=== PATIENT | female | born 2000 | race Caucasian/White ===

== ENCOUNTER 2018-01-17 12:36 | Observation (INO) ==
[~2018-01-17 12:36] MED LIST: LACTATED RINGER'S 1,000 ML IV SCH
[2018-01-17] MEDS ORDERED: SODIUM CHLORIDE 0.9% 1000ML 2,000 ML IV SCH (13:00)
[2018-01-17] MEDS ORDERED: ONDANSETRON INJ 2 MG/ML 2 ML VIAL IV STA (13:00)
[2018-01-17] MEDS ORDERED: ACETAMINOPHEN 1,000 MG/100 ML VIAL IV ONE (13:00)
[2018-01-17] MEDS ORDERED: MoRPHine SULFATE 4 MG/ML 1 ML CARP\\VIAL IV STA (13:00)
[2018-01-17 13:30] LABS: Appearance Urine Cloudy (Clear); Bacteria Urine Automated 1+ (Negative); Bilirubin Urine Negative (Negative); Color Urine Dark Yellow; Epithelial Cell Urine Auto >30 /lpf (0-5); Glucose Urine UA Negative (Negative); Leukocyte Esterase Urine Negative (Negative); Nitrite Urine Negative (Negative); Protein Urine 1+ (Negative); Specific Gravity Urine 1.036 (1.000-1.030); Urobilinogen Urine Negative (Negative); pH Urine 5.5 (4.5-7.5)
[2018-01-17 13:31] LABS: Basophils # (auto) 0.04 K/uL (0-0.2); Basophils % (auto) 0.4 %; Eosinophils # (auto) 0.03 K/uL (0-0.5); Eosinophils % (auto) 0.3 %; Hematocrit (blood only) 33.5 % (37-47); Hemoglobin 12.1 g/dL (12.0-16.0); Immature Granulocytes # (auto) 0.05 K/uL (0.00-0.02); Immature Granulocytes % (auto) 0.5 %; Lymphocytes # (auto) 2.75 K/uL (1.2-3.4); Lymphocytes % (auto) 26.8 %; Mean Corpuscular Hgb Conc 36.1 g/dL (32-36); Mean Platelet Volume 9.2 fL (7.4-10.4); Monocytes # (auto) 1.18 K/uL (0.11-0.59); Monocytes % (auto) 11.5 %; Neutrophils # (auto) 6.22 K/uL (1.4-6.5); Neutrophils % (auto) 60.5 %; Platelet Count 199 K/uL (130-400); RDW Coefficient of Variation 12.4 % (11.5-14.5); RDW Standard Deviation 42.2 fL (36.4-46.3); Red Blood Count 3.64 M/uL (4.2-5.4); White Blood Count 10.27 K/uL (4.8-10.8)
[2018-01-17 13:35] LABS: Ketones Urine 4+ (Negative)
--- NOTE | 2018-01-17 13:38 | XRay Report ---
XR chest 1V portable CLINICAL HISTORY: diffuse abd pain after intercourse, r/o free air pain COMPARISON STUDY: No previous studies for comparison. FINDINGS: The bones soft tissues and hemidiaphragms are normal. The cardiomediastinal silhouette is n ormal. The lungs are clear. The pulmonary vasculature is normal. IMPRESSION: Negative chest. The above report was generated using voice recognition software. It may contain grammatical, syntax or spelling errors. Electronically signed by: Von Black M.D. 01/17/2018 1:37 PM
[2018-01-17 13:50] LABS: Cast Urine Automated 0 /lpf (0-5)
[2018-01-17 13:51] LABS: BUN Creatinine Ratio 14.8 (10-20); Bilirubin Direct 0.3 mg/dl (0-0.2); Calcium 9.1 mg/dl (8.5-10.1); Creatinine Clr Calc Pharmacy 92.9 ml/min; Est GFR (African American) 129.7; Est GFR (Non-African American) 111.9; Potassium 3.6 mmol/L (3.5-5.1)
[2018-01-17 13:54] LABS: Albumin Globulin Ratio 1.1 (0.9-2); Bilirubin,Total 0.8 mg/dl (0.1-1); Globulin 3.5 gm/dl (2.5-4.0); Total Protein 7.5 gm/dl (6.4-8.2)
[2018-01-17 13:56] LABS: Pregnancy Test, Serum Negative (Negative)
[2018-01-17] MEDS ORDERED: IOVERSOL 100ml IV PRN (14:03)
--- NOTE | 2018-01-17 14:21 | CT Scan Report ---
CT SCAN OF THE ABDOMEN AND PELVIS WITH IV CONTRAST CLINICAL HISTORY: Post coital abdominal pain. COMPARISON STUDY: No priors. TECHNIQUE: Following the IV administration of 93 cc of Optiray 320, CT scan of the abdomen and pelvi s is performed from the lung bases to the proximal femora. Images are reviewed in the axial, sagittal , and coronal planes. IV contrast was administered without complication. A dose lowering technique wa s utilized adhering to the principles of ALARA. CT DOSE: 266.13 mGy.cm FINDINGS: Lung bases: The heart is normal in size and without pericardial effusion. The lung bases are clear. Liver: The contrast-enhanced liver is normal in size, contour, and attenuation. There is no intrahepa tic biliary ductal dilatation. The hepatic veins and portal veins are patent. Gallbladder: Unremarkable. Spleen: Normal in size and attenuation. Pancreas: Unremarkable. Adrenal glands: Unremarkable. Kidneys: The contrast enhanced kidneys are normal in size and without hydronephrosis. The kidneys enh ance symmetrically. Abdominal vasculature: The abdominal aorta is normal in course and caliber. Bowel: The small bowel and colon are normal in course and caliber. The appendix is partially visuali zed and grossly unremarkable. Peritoneum: There is no intraperitoneal free air. There is a moderate to large volume of complex free fluid in the abdomen and pelvis consistent with hemoperitoneum. Hyperdense blood/clots are present i n the pelvis. No active extravasation is seen. Lymphadenopathy: None. Pelvic viscera: The uterus is normal as visualized noting an intrauterine device in place. Involuting follicles are suggested in the left ovary. The bladder is decompressed and grossly normal. Skeletal structures: No lytic or blastic lesions are seen. IMPRESSION: 1. There is a moderate to large volume of hemoperitoneum, with hyperdense blood products identified i n the pelvis. A pelvic etiology is favored, and top differential considerations include a ruptured ec topic or a ruptured hemorrhagic ovarian cyst. Gynecological assessment is recommended. 2. No active extravasation is identified. 3. An intrauterine device is in place. 4. An involuting cyst/follicle is suggested in the left ovary. 5. No intraperitoneal free air is seen. 6. Additional findings as above. Findings were discussed with Dr. Strong in the emergency department at the time of interpretation. Electronically signed by: Deion Rendon M.D. 01/17/2018 2:20 PM
[2018-01-17] MEDS ORDERED: ONDANSETRON INJ 2 MG/ML 2 ML VIAL IV PRN (15:48)
--- NOTE | 2018-01-17 16:18 | Consultation Report ---
DATE OF CONSULTATION: 01/17/2018 HISTORY AND PHYSICAL/COMMUNITY ORGANIZATION WORKER CONSULT Consult from the ER was placed by Dr. Strong. CHIEF COMPLAINT: Abdominal pain. HISTORY OF PRESENT ILLNESS: The patient is a 17-year-old G0 who was in her usual state of health. She had intercourse last night and then around 10:00 p.m. after the intercourse experienced abdominal pain. Pain was intense and was associated with some difficulty breathing as well as worsening with movement. The patient presented to the Emergency Room this morning with the abdominal pain. She reports abdominal pain is now 5/10 compared to 11/27. She was seen by the ER doctor. Vitals are stable. She has no vaginal bleeding. The abdominal pain evaluation in the ER included a chest x-ray and a CT scan. The chest x-ray is unremarkable. The CT scan showed moderate to large amount of hemoperitoneum within the abdomen and pelvis. COMMUNITY ORGANIZATION WORKER consult was therefore placed. Patient is seen by me. She is alert, awake and not in severe discomfort. Vitals are stable. PAST MEDICAL HISTORY: None. PAST SURGICAL HISTORY: None. SOCIAL HISTORY: The patient denied tobacco, drug or alcohol use. GYNECOLOGIC HISTORY: The patient has IUD and is sexually active. PHYSICAL EXAMINATION: GENERAL: Well-developed, well-nourished white female in no acute distress. HEART: S1, S2, regular rhythm and rate. LUNGS: Clear to auscultation bilaterally. ABDOMEN: The patient has some generalized tenderness. There is, however, bowel sounds. EXTREMITIES: No cyanosis, clubbing, edema. ASSESSMENT AND PLAN: A 17-year-old G0 with what appears to be ruptured hemorrhagic cyst. Vitals are stable. H&H is stable. I have discussed hemorrhagic cyst rupture with patient. We discussed expected management versus surgery. The patient is a college student and is not sure what she wants to do right now. Decision therefore is to admit patient for observation and continue to monitor H&H and if she gets worse during the night, in the morning we will consider surgery. CARRIE
[2018-01-17 16:40] LABS: Hematocrit (blood only) 27.5 % (37-47); Hemoglobin 9.8 g/dL (12.0-16.0)
[2018-01-17] MEDS: LACTATED RINGER'S 1,000 ML IV SCH (17:52)
[2018-01-17] MEDS: OXYCODONE/ACETAMINOPHEN 5mg/325mg TAB PO PRN (18:52)
--- NOTE | 2018-01-17 20:05 | Emergency Department Note ---
Entered by Ana Finn acting as a scribe for Reyes Strong MD History of Present Illness General Chief complaint: Pelvic Pain Stated complaint: CRAMPING IN PELVIS,BACK AND PELVIC PAIN Time Seen by Provider: 01/17/18 12:47 Source: patient History of Present Illness Onset (ago): day(s) 1 Location: abdomen Pain Consistency: + constant Maximum Pain Intensity: 6 Quality: + other ("cramping") Exacerbated By: + other (deeps breaths) Associated symptoms: + diaphoresis, + nausea/vomiting (The patient complains of nausea but denies vomiting. ) and + other (The patient complains of upper back pain and abdominal pain with urination. She denies any pain during intercourse , abnormal or bloody discharge and itching vaginally. ); no fever/chills The patient is a 17 year old female who presents to the Emergency Room with complaints of constant "cramping" upper abdominal pain that began yesterday after intercourse. She states that the pain "feels like it's moving." The patient complains of upper back pain, abdominal pain with urination, diaphoresis , and nausea. She denies any pain during intercourse, abnormal or bloody discharge, itching vaginally, fever, and vomiting. She says that the pain worsens with deep breaths. The patient states that she has had her current IUD in for a year, and notes that she gets normal menstrual cycles. She says that her LKNP was 2 weeks ago. The patient denies any history of abdominal issues. Home Medications Home Medications Medication Instructions Recorded Confirmed Type fexofenadine [Kerrie Allergy] 180 mg PO BID 01/17/18 01/17/18 History multivitamin 1 tab PO QAM 01/17/18 01/17/18 History Allergies Allergy/AdvReac Type Severity Reaction Status Date / Time SEASONAL Allergy Watery Eye Uncoded 01/17/18 14:06 Past Med/Surg History Medical History No significant past medical history No significant past surgical history Family History Other No pertinent family history Social History Current Living Situation Comment: Pt [employer] student living on campus current occupational status: student Other Information That Helps Us Care for You: No Feels Safe at Home: Yes Smoking Status: Never smoker Do You Dip or Chew Tobacco: No Second Hand Exposure: No Tobacco Cessation Education Requested by Patient: No Hx Alcohol Use: No Hx Substance Use: No Beliefs That Will Affect Care: None Preferred Language: Amharic Communication Ability: Effective Review of Systems See HPI for pertinent positives & negatives. and A total of 10 systems reviewed and were otherwise negative Physical Exam Vital Signs Vital Signs - 24 hr 01/17/18 12:41 01/17/18 13:22 01/17/18 14:53 Temperature 36.9 C Temperature Source Oral Sepsis Recent Fever Within 48 Hours No Sepsis New/Unexplained Change in Mental Status No Sepsis Action Taken by Nursing No Action Required Pulse Rate 125 H Pulse Rate [Apical] 85 89 Pulse Rhythm [Apical] Pulse Strength [Apical] Respiratory Rate 20 17 16 Respiratory Effort / Characteristics Respiratory Depth Normal Respiratory Pattern Blood Pressure 120/82 Blood Pressure [Right Arm] 105/63 107/69 Blood Pressure Mean 94 Blood Pressure Mean [Right Arm] 77 81 Blood Pressure Position [Right Arm] Pulse Oximetry 98 98 99 Oxygen Delivery Method Room Air Room Air 01/17/18 15:32 01/17/18 16:43 01/17/18 17:10 Temperature 37.2 C Temperature Source Oral Sepsis Recent Fever Within 48 Hours Sepsis New/Unexplained Change in Mental Status Sepsis Action Taken by Nursing Pulse Rate 68 Pulse Rate [Apical] 88 88 Pulse Rhythm [Apical] Regular Pulse Strength [Apical] Normal Respiratory Rate 19 20 20 Respiratory Effort / Characteristics Non-Labored Spontaneous Normal for Patient Respiratory Depth Normal Respiratory Pattern Regular Blood Pressure 102/56 L Blood Pressure [Right Arm] 109/72 103/54 L Blood Pressure Mean Blood Pressure Mean [Right Arm] 84 70 Blood Pressure Position [Right Arm] Sitting Pulse Oximetry 97 100 100 Oxygen Delivery Method Room Air Room Air Room Air GENERAL: Awake, alert, uncomfortable-appearing, in no distress HENT: Normocephalic, atraumatic. Oropharynx with dry mucous membranes and otherwise unremarkable. EYES: Normal conjunctiva. Sclera non-icteric. NECK: Supple. No nuchal rigidity. FROM. No JVD. RESPIRATORY: Clear to auscultation. CARDIAC: Tachycardic rate, normal rhythm. Extremities warm and well perfused. Pulses equal. ABDOMEN: Soft, non-distended. No rebound or guarding. No masses. Generalized abdominal tenderness, most severe in the suprapubic, RLQ and RUQ that is moderate to severe and makes the patient near-tearful. She does withdrawal to deep palpation. RECTAL: Deferred. MUSCULOSKELETAL: Chest examination reveals no tenderness. The back is symmetrical on inspection without obvious abnormality. There is no CVA tenderness to palpation. No joint edema. LOWER EXTREMITIES: Calves are equal size bilaterally and non-tender. No edema. No discoloration. NEURO: Normal sensorium. No sensory or motor deficits noted. SKIN: No rash or jaundice noted. Course 1251: Past medical records reviewed. The patient was evaluated in room C02, and a complete history and physical examination were performed. 1419: I updated the patient about her results. 1442: I spoke with ALEXA Hsu, about the patient's case. He will evaluate her further. Consultations Consultation #1: I spoke with ALXEA Hsu, about the patient's case. He will evaluate her further. Time: 14:24 Administered Medications Lactated Ringer's (Lr) 1,000 mls @ 125 mls/hr IV .Q8H YI Stop: 02/16/18 17:44 Last Admin: 01/17/18 17:52 Dose: 125 mls/hr Ondansetron HCl (Zofran) 4 mg IV Q4 PRN PRN Reason: Nausea Stop: 02/16/18 15:59 Last Admin: 01/17/18 18:12 Dose: 4 mg Oxycodone/Acetaminophen (Percocet 5mg/325mg) 1 tab PO Q4H PRN PRN Reason: Pain Stop: 01/31/18 15:47 Last Admin: 01/17/18 18:52 Dose: 1 tab Discontinued Medications Acetaminophen (Ofirmev) 1,000 mg in 100 mls @ 400 mls/hr IV NOW ONE Stop: 01/17/18 13:14 Last Infusion: 01/17/18 13:36 Dose: 0 mls/hr Admin: 01/17/18 13:16 Dose: 400 mls/hr Sodium Chloride (Nss 1000ml) 2,000 mls @ 999 mls/hr IV .Q2H1M YI Stop: 01/17/18 15:00 Last Infusion: 11/30/18 15:20 Dose: 0 mls/hr Admin: 01/17/18 13:17 Dose: 999 mls/hr Ioversol (Optiray 320 100ml) 94 ml IV ONCE PRN PRN Reason: Interaction Checking Stop: 01/21/18 14:02 Last Admin: 01/17/18 14:04 Dose: 94 ml Morphine Sulfate (Morphine Sulfate) 4 mg IV NOW STA Stop: 01/17/18 13:01 Last Admin: 01/17/18 13:16 Dose: 4 mg Ondansetron HCl (Zofran) 4 mg IV NOW STA Stop: 01/17/18 13:01 Last Admin: 01/17/18 13:16 Dose: 4 mg Medical Decision Making Differential Diagnosis Etiologies such as biliary colic, cholecystitis, hepatitis, perihepatitis, pancreatitis, cardiac disease, pancreatitis, gastritis, peptic ulcer disease, appendicitis, ovarian cyst, ovarian torsion, ectopic , pelvic inflammatory disease, cystitis, diverticulitis, mesenteric ischemia, inflammatory bowel disease, ileus, bowel obstruction, aortic pathology, shingles , as well as others were considered. Medical Records Attestation: I reviewed the patient's medical records. Home Medications Current Medication List: was personally reviewed by me Laboratory Data Attestation: I reviewed the patient's lab results. Result diagrams: 01/17/18 16:21 01/17/18 13:15 Lab Results 01/17/18 01/17/18 01/17/18 Range/Units 12:50 13:15 13:15 WBC 10.27 (4.8-10.8) K/uL RBC 3.64 L (4.2-5.4) M/uL Hgb 12.1 (12.0-16.0) g/dL Hct 33.5 L (37-47) % MCV 92.0 (80-100) fL MCH 33.2 (25-34) pg MCHC 36.1 H (32-36) g/dL RDW Std Deviation 42.2 (36.4-46.3) fL RDW Coeff of Duane 12.4 (11.5-14.5) % Plt Count 199 (130-400) K/uL MPV 9.2 (7.4-10.4) fL Immature Gran % (Auto) 0.5 % Neut % (Auto) 60.5 % Lymph % (Auto) 26.8 % Vernon % (Auto) 11.5 % Eos % (Auto) 0.3 % Baso % (Auto) 0.4 % Immature Gran # (Auto) 0.05 H (0.00-0.02) K/uL Neut # (Auto) 6.22 (1.4-6.5) K/uL Lymph # (Auto) 2.75 (1.2-3.4) K/uL Vernon # (Auto) 1.18 H (0.11-0.59) K/uL Eos # (Auto) 0.03 (0-0.5) K/uL Baso # (Auto) 0.04 (0-0.2) K/uL Sodium 137 (136-145) mmol/L Potassium 3.6 (3.5-5.1) mmol/L Chloride 103 (98-107) mmol/L Carbon Dioxide 27 (21-32) mmol/L Anion Gap 6.0 (3-11) BUN 11 (7-18) mg/dl Creatinine 0.77 (0.6-1.2) mg/dl Est Cr Clr Drug Dosing 92.9 ml/min Est GFR ( Amer) 129.7 Est GFR (Non-Af Amer) 111.9 BUN/Creatinine Ratio 14.8 (10-20) Glucose 100 H (70-99) mg/dl Calcium 9.1 (8.5-10.1) mg/dl Total Bilirubin 0.8 (0.1-1) mg/dl Direct Bilirubin 0.3 H (0-0.2) mg/dl AST 31 (15-37) U/L ALT 81 H (12-78) U/L Alkaline Phosphatase 71 (45-117) U/L Total Protein 7.5 (6.4-8.2) gm/dl Albumin 4.0 (3.4-5.0) gm/dl Globulin 3.5 (2.5-4.0) gm/dl Albumin/Globulin Ratio 1.1 (0.9-2) Lipase 134 (73-393) U/L HCG, Qual (Negative) Urine Color Dark Yellow Urine Appearance Cloudy H (Clear) Urine pH 5.5 (4.5-7.5) Ur Specific [place] 1.036 H (1.000-1.030) Urine Protein 1+ H (Negative) Urine Glucose (UA) Negative (Negative) Urine Ketones 4+ H (Negative) Urine Blood Negative (Negative) Urine Nitrite Negative (Negative) Urine Bilirubin Negative (Negative) Urine Urobilinogen Negative (Negative) Ur Leukocyte Esterase Negative (Negative) Urine WBC (Auto) 1-5 (0-5) /hpf Urine RBC (Auto) 5-10 H (0-4) /hpf U Hyaline Cast (Auto) 0 (0-5) /lpf U Epithel Cells (Auto) >30 H (0-5) /lpf Urine Bacteria (Auto) 1+ H (Negative) Blood Type Antibody Screen 01/17/18 01/17/18 01/17/18 Range/Units 13:15 14:54 16:21 WBC (4.8-10.8) K/uL RBC (4.2-5.4) M/uL Hgb 9.8 L (12.0-16.0) g/dL Hct 27.5 L (37-47) % MCV (80-100) fL MCH (25-34) pg MCHC (32-36) g/dL RDW Std Deviation (36.4-46.3) fL RDW Coeff of Duane (11.5-14.5) % Plt Count (130-400) K/uL MPV (7.4-10.4) fL Immature Gran % (Auto) % Neut % (Auto) % Lymph % (Auto) % Vernon % (Auto) % Eos % (Auto) % Baso % (Auto) % Immature Gran # (Auto) (0.00-0.02) K/uL Neut # (Auto) (1.4-6.5) K/uL Lymph # (Auto) (1.2-3.4) K/uL Vernon # (Auto) (0.11-0.59) K/uL Eos # (Auto) (0-0.5) K/uL Baso # (Auto) (0-0.2) K/uL Sodium (136-145) mmol/L Potassium (3.5-5.1) mmol/L Chloride (98-107) mmol/L Carbon Dioxide (21-32) mmol/L Anion Gap (3-11) BUN (7-18) mg/dl Creatinine (0.6-1.2) mg/dl Est Cr Clr Drug Dosing ml/min Est GFR ( Amer) Est GFR (Non-Af Amer) BUN/Creatinine Ratio (10-20) Glucose (70-99) mg/dl Calcium (8.5-10.1) mg/dl Total Bilirubin (0.1-1) mg/dl Direct Bilirubin (0-0.2) mg/dl AST (15-37) U/L ALT (12-78) U/L Alkaline Phosphatase (45-117) U/L Total Protein (6.4-8.2) gm/dl Albumin (3.4-5.0) gm/dl Globulin (2.5-4.0) gm/dl Albumin/Globulin Ratio (0.9-2) Lipase (73-393) U/L HCG, Qual Negative (Negative) Urine Color Urine Appearance (Clear) Urine pH (4.5-7.5) Ur Specific [place] (1.000-1.030) Urine Protein (Negative) Urine Glucose (UA) (Negative) Urine Ketones (Negative) Urine Blood (Negative) Urine Nitrite (Negative) Urine Bilirubin (Negative) Urine Urobilinogen (Negative) Ur Leukocyte Esterase (Negative) Urine WBC (Auto) (0-5) /hpf Urine RBC (Auto) (0-4) /hpf U Hyaline Cast (Auto) (0-5) /lpf U Epithel Cells (Auto) (0-5) /lpf Urine Bacteria (Auto) (Negative) Blood Type A Positive Antibody Screen NEGATIVE Imaging Data Radiologist's Impression: Radiology results as stated below per my review and the radiologist's interpretation: XR chest 1V portable CLINICAL HISTORY: diffuse abd pain after intercourse, r/o free air pain COMPARISON STUDY: No previous studies for comparison. FINDINGS: The bones soft tissues and hemidiaphragms are normal. The cardiomediastinal silhouette is normal. The lungs are clear. The pulmonary vasculature is normal. IMPRESSION: Negative chest. The above report was generated using voice recognition software. It may contain grammatical, syntax or spelling errors. Electronically signed by: Von Black M.D. 01/17/2018 1:[address] SCAN OF THE ABDOMEN AND PELVIS WITH IV CONTRAST CLINICAL HISTORY: Post coital abdominal pain. COMPARISON STUDY: No priors. TECHNIQUE: Following the IV administration of 93 cc of Optiray 320, CT scan of the abdomen and pelvis is performed from the lung bases to the proximal femora. Images are reviewed in the axial, sagittal, and coronal planes. IV contrast was administered without complication. A dose lowering technique was utilized adhering to the principles of ALARA. CT DOSE: 266.13 mGy.cm FINDINGS: Lung bases: The heart is normal in size and without pericardial effusion. The lung bases are clear. Liver: The contrast-enhanced liver is normal in size, contour, and attenuation. There is no intrahepatic biliary ductal dilatation. The hepatic veins and portal veins are patent. Gallbladder: Unremarkable. Spleen: Normal in size and attenuation. Pancreas: Unremarkable. Adrenal glands: Unremarkable. Kidneys: The contrast enhanced kidneys are normal in size and without hydronephrosis. The kidneys enhance symmetrically. Abdominal vasculature: The abdominal aorta is normal in course and caliber. Bowel: The small bowel and colon are normal in course and caliber. The appendix is partially visualized and grossly unremarkable. Peritoneum: There is no intraperitoneal free air. There is a moderate to large volume of complex free fluid in the abdomen and pelvis consistent with hemoperitoneum. Hyperdense blood/clots are present in the pelvis. No active extravasation is seen. Lymphadenopathy: None. Pelvic viscera: The uterus is normal as visualized noting an intrauterine device in place. Involuting follicles are suggested in the left ovary. The bladder is decompressed and grossly normal. Skeletal structures: No lytic or blastic lesions are seen. IMPRESSION: 1. There is a moderate to large volume of hemoperitoneum, with hyperdense blood products identified in the pelvis. A pelvic etiology is favored, and top differential considerations include a ruptured ectopic or a ruptured hemorrhagic ovarian cyst. Gynecological assessment is recommended. 2. No active extravasation is identified. 3. An intrauterine device is in place. 4. An involuting cyst/follicle is suggested in the left ovary. 5. No intraperitoneal free air is seen. 6. Additional findings as above. Findings were discussed with Dr. Strong in the emergency department at the time of interpretation. Electronically signed by: Deion Rendon M.D. 01/17/2018 2:20 PM Blood Pressure Blood Pressure Findings: Normal blood pressure Blood Pressure Disposition: did not require urgent referral MDM Narrative The patient is a pleasant 17-year-old woman previously healthy who presents emergency department with severe abdominal pain that began last night after sexual intercourse per hpi. Patient denies any vaginal bleeding or discharge. Patient does have an IUD which was replaced 1 year ago and has had not any complications related to this. On arrival the patient is uncomfortable but no acute distress, afebrile with heart rate in the 120s and vital signs otherwise stable. On exam the patient has moderate to severe generalized abdominal pain that is most tender in the suprapubic and right lower and upper quadrants with associated withdrawal to deep palpation. Bedside ultrasound demonstrates free fluid in the pelvis as well as around the liver/Morison's pouch concerning for bleeding. CT the abdomen pelvis ordered and demonstrated moderate to severe hemoperitoneum with likely source of a left ruptured ovarian cyst and given that the patient has a negative hCG unlikely to be ectopic. WBC is within normal limits. Hemoglobin 12.1 without prior for comparison. Chemistry without evidence of acidosis. Heart rate improved to the 80s after IV fluid hydration, however still with tender abdomen. Case was discussed with Dr. Puentes , [facility] [employer], who evaluated the patient at the bedside and will admit the patient for observation including trending H/H. Impression & Plan Hemoperitoneum Discharge Plan Visit Data *Final* Discharge Date/Time: 01/17/18 16:43 Chief Complaint: Pelvic Pain Stated Complaint: CRAMPING IN PELVIS,BACK AND PELVIC PAIN ED Provider: Reyes Strong Discharge Problem: Hemoperitoneum Patient Disposition: Admitted As Inpatient Discharge Instructions Interventions: ED Discharge Assessment Last Done: 01/17/18 16:43 The scribe's documentation has been prepared under my direction and personally reviewed by me in its entirety. I confirm that the note above accurately reflects all work, treatment, procedures, and medical decision making performed by me.
--- NOTE | 2018-01-17 20:29 | Obstetrical Progress Note ---
Date of Service January 17, 2011 [employer] Note' Repeat H?H shows >2 pt drop in hemoglobin Pt continues to have stable vitals Discussed surgery vrs expectant managment again in the phase of the change in HGB discussed this with patients's Mom on phone as well We have agreed to surgery Pt is consented for exploratory laparoscopy. possible operative laparoscopy, evacuation of hemoperitonium, possible left salpingo-oopherectomy, possible ovarian cystectomy, possible laparatomy. risk of surgery and complications are discussed in details with pt Physical Exam 2 Vital Signs (Past 24 Hours): Last Vital Signs Temp 37.2 C 01/17/18 17:10 Pulse 88 01/17/18 17:10 Resp 20 01/17/18 17:10 BP 103/54 L 01/17/18 17:10 Pulse Ox 100 01/17/18 17:10
--- NOTE | 2018-01-17 20:37 | History & Physical Bridge Note ---
Date of Service January 17, 2018 History & Physical Bridge Note Bridge Note There is a 2 Units change in hemoglobin since pt was admitted Pt now wishes to consider surgery No other changes in the history and physical
--- NOTE | 2018-01-17 22:04 | Anesthesiology Consultation ---
Date of Service January 17, 2018 Assessment & Plan (1) Encounter for pre-operative examination: Chart Review Chart Review: Acceptable Risk for Surgery Consults Requested none ASA [id number] Proposed Anesthesia Anesthesia Type: General NPO Date Last Intake of Fluids: 01/17/18 Time Last Intake of Fluids: 18:52 Last Intake of Fluids Comment: water with medication Date Last Intake of Solids: 01/17/18 Time Last Intake of Solids: 09:00 History Surgery Operation Date: 01/17/18 22:00 Proposed Procedures p Laparoscopic Operative - Ortega Puentes MD Height/Weight Height: 5 ft 2 in Weight: 56.7 kg Allergies Allergy/AdvReac Type Severity Reaction Status Date / Time SEASONAL Allergy Watery Eye Uncoded 01/17/18 14:06 Medications Home Medications Medication Instructions Recorded Confirmed Last Taken fexofenadine [Kerrie Allergy] 180 mg PO BID 01/17/18 01/17/18 01/16/18 22:00 multivitamin 1 tab PO QAM 01/17/18 01/17/18 01/16/18 Active Medications Generic Name Dose Route Start Last Admin Trade Name Freq PRN Reason Stop Dose Admin Lactated Ringer's 1,000 mls @ 125 mls/hr 01/17/18 17:45 01/17/18 17:52 Lr IV 02/16/18 17:44 125 mls/hr .Q8H YI Administration Ondansetron HCl 4 mg 01/17/18 15:48 01/17/18 18:12 Zofran IV 02/16/18 15:59 4 mg Q4 PRN Administration Nausea Oxycodone/Acetaminophen 1 tab 01/17/18 15:48 01/17/18 18:52 Percocet 5mg/325mg PO 01/31/18 15:47 1 tab Q4H PRN Administration Pain Past Medical History Medical History No significant past medical history No significant past surgical history Past Family History Family History Other No pertinent family history Social History Smoking Status: Never smoker Do You Dip or Chew Tobacco: No Hx Alcohol Use: No Hx Substance Use: No Physical Exam Vital Signs Last Vital Signs Temp 37.0 C 01/17/18 19:00 Pulse 64 01/17/18 19:00 Resp 17 01/17/18 19:00 BP 100/53 L 01/17/18 19:00 Pulse Ox 100 01/17/18 19:00 ENMT Mouth: no dentition abnormality Thyromental Distance: > or= 3.5 Finger Breadths Mallampati Class: I Neck normal visual inspection; neck extension not limited Respiratory normal respiratory effort Auscultation: lungs clear to auscultation bilaterally Cardiovascular Rate/Rhythm: regular rate and regular rhythm Musculoskeletal Spine: normal cervical ROM Psychiatric Orientation: alert and oriented x 3 Testing Laboratory Results 01/17/18 16:21 01/17/18 13:15 Blood Type A Positive 01/17/18 14:54 Antibody Screen NEGATIVE 01/17/18 14:54 Urine Color Dark Yellow 01/17/18 12:50 Urine Appearance Cloudy (Clear) H 01/17/18 12:50 Urine pH 5.5 (4.5-7.5) 01/17/18 12:50 Ur Specific [place] 1.036 (1.000-1.030) H 01/17/18 12:50 Urine Protein 1+ (Negative) H 01/17/18 12:50 Urine Glucose (UA) Negative (Negative) 01/17/18 12:50 Urine Ketones 4+ (Negative) H 01/17/18 12:50 Urine Nitrite Negative (Negative) 01/17/18 12:50 Ur Leukocyte Esterase Negative (Negative) 01/17/18 12:50 Urine WBC (Auto) 1-5 /hpf (0-5) 01/17/18 12:50 Urine RBC (Auto) 5-10 /hpf (0-4) H 01/17/18 12:50 U Hyaline Cast (Auto) 0 /lpf (0-5) 01/17/18 12:50 U Epithel Cells (Auto) >30 /lpf (0-5) H 01/17/18 12:50 Urine Bacteria (Auto) 1+ (Negative) H 01/17/18 12:50
[2018-01-17] MEDS ORDERED: fentaNYL citrate 100 MCG/2 ML VIAL ONE ×2 (22:22→22:23)
[2018-01-17] MEDS ORDERED: BUPIVACAINE 0.5 % 5 MG/1 ML MPF 30ML VIAL ONE (22:58)
[2018-01-17] MEDS ORDERED: FLOSEAL HEMOSTATIC MATRIX 5ML TOP ONE (23:53)
[2018-01-18] MEDS ORDERED: MoRPHine SULFATE 2 MG/ML CARP ONE ×2 (00:12→00:18)
[2018-01-18] MEDS ORDERED: PROPOFOL IV EMULSION 10 MG/ML 20 ML VIAL IV ONE (00:17)
[2018-01-18] MEDS ORDERED: ONDANSETRON INJ 2 MG/ML 2 ML VIAL ONE (00:17)
[2018-01-18] MEDS ORDERED: ROCURONIUM BROMIDE 10 MG/ML 5 ML VIAL ONE (00:17)
[2018-01-18] MEDS ORDERED: SUCCINYLCHOLINE CHLORIDE 20 MG/ML 10 ML VIAL ONE (00:17)
[2018-01-18] MEDS ORDERED: LIDOCAINE HCL 2% 2 ML VIAL/AMP(20MG/ML) INFIL ONE (00:17)
[2018-01-18] MEDS ORDERED: ONDANSETRON INJ 2 MG/ML 2 ML VIAL IV PRN (00:46)
[2018-01-18] MEDS ORDERED: MAGNESIUM HYDROXIDE SUSP 30 ML UDC PO PRN (00:46)
[2018-01-18] MEDS ORDERED: OXYCODONE/ACETAMINOPHEN 5mg/325mg TAB PO PRN (00:51)
--- NOTE | 2018-01-18 00:53 | Post Operative Brief Note ---
Immediate Post Op Note v1 Date of Surgery January 18, 2018 Pre & Post Diagnosis Operation Date: 01/17/18 22:00 Pre-Op Diagnosis: Ruptured left ovarian cyst Post-Op Diagnosis: Ruptured left ovarian cyst Procedure Operation Date: 01/17/18 22:00 Actual Procedures p Diagnostic Laparoscopy, Evacuation of Hemoperitoneum, Cauterization of Hemorrhagic Corpus Luteum Cyst(Not Applicable) - Ortega Puentes MD Surgeon Ortega Puentes MD Can Piler [place] Estimated Blood Loss 20 Findings Consistent with Post-Op Diagnosis Drains Gee Catheter
[2018-01-18] MEDS ORDERED: LACTATED RINGER'S 1,000 ML IV SCH (01:00)
--- NOTE | 2018-01-18 01:06 | Anesthesiology Progress Note ---
Date of Service January 18, 2018 Anesthesia Post Procedure Vital Signs Vital Signs: Temp Pulse Pulse Resp BP BP Pulse Ox 01/18/18 00:45 78 19 97 01/18/18 00:41 89 21 113/67 97 01/18/18 00:40 103 H 23 97 01/18/18 00:36 106 H 24 129/46 L 95 01/18/18 00:35 36.5 C 112 H 110 H 18 129/46 L 93 01/18/18 00:33 91 01/17/18 19:00 37.0 C 64 17 100/53 L 100 01/17/18 17:10 37.2 C 88 20 103/54 L 100 01/17/18 16:45 102/56 L 01/17/18 16:43 68 20 102/56 L 100 01/17/18 16:40 69 20 01/17/18 16:35 77 19 01/17/18 16:30 77 25 H 01/17/18 16:25 78 26 H 01/17/18 16:20 79 24 01/17/18 16:15 78 20 01/17/18 16:10 82 23 01/17/18 16:05 78 18 01/17/18 16:00 88 27 H 01/17/18 15:55 76 20 01/17/18 15:50 79 17 01/17/18 15:45 80 18 01/17/18 15:40 79 15 01/17/18 15:35 89 20 01/17/18 15:32 90 88 20 109/72 109/72 98 01/17/18 15:30 89 17 01/17/18 15:25 84 19 01/17/18 15:20 86 21 01/17/18 15:15 96 H 17 01/17/18 15:10 98 H 18 01/17/18 15:05 88 17 01/17/18 15:00 93 H 21 01/17/18 14:55 87 25 H 01/17/18 14:54 99 H 21 01/17/18 14:53 97 H 89 17 107/69 107/69 99 01/17/18 13:50 88 24 01/17/18 13:45 74 18 01/17/18 13:41 91 H 20 01/17/18 13:24 86 30 H 105/63 01/17/18 13:22 85 17 105/63 98 01/17/18 12:41 36.9 C 125 H 20 120/82 98 Pain Intensity Bilateral: Pain Intensity: 2 Notes Mental Status: alert / awake / arousable Patient Amnestic to Procedure: Yes Nausea / Vomiting: adequately controlled Pain: adequately controlled Airway Patency, RR, SpO2: stable & adequate BP & HR: stable & adequate Hydration State: stable & adequate Anesthetic Complications: no major complications apparent
[2018-01-18] MEDS: LACTATED RINGER'S 1,000 ML IV SCH (02:11)
[2018-01-18] MEDS: IBUPROFEN 600 MG TAB PO PRN ×2 (03:28→07:43)
[2018-01-18] MEDS: OXYCODONE/ACETAMINOPHEN 5mg/325mg TAB PO PRN (04:39)
[2018-01-18 06:50] LABS: Basophils # (auto) 0.01 K/uL (0-0.2); Basophils % (auto) 0.1 %; Hematocrit (blood only) 26.4 % (37-47); Hemoglobin 9.4 g/dL (12.0-16.0); Immature Granulocytes # (auto) 0.02 K/uL (0.00-0.02); Immature Granulocytes % (auto) 0.3 %; Lymphocytes # (auto) 1.55 K/uL (1.2-3.4); Lymphocytes % (auto) 19.9 %; Mean Corpuscular Hgb Conc 35.6 g/dL (32-36); Mean Corpuscular Volume 92.6 fL (80-100); Mean Platelet Volume 8.9 fL (7.4-10.4); Monocytes # (auto) 0.43 K/uL (0.11-0.59); Monocytes % (auto) 5.5 %; Neutrophils # (auto) 5.76 K/uL (1.4-6.5); Neutrophils % (auto) 74.2 %; Platelet Count 149 K/uL (130-400); RDW Coefficient of Variation 12.4 % (11.5-14.5); RDW Standard Deviation 42.5 fL (36.4-46.3); Red Blood Count 2.85 M/uL (4.2-5.4); White Blood Count 7.77 K/uL (4.8-10.8)
--- NOTE | 2018-01-20 07:47 | Operative Report ---
DATE OF OPERATION: 01/18/2018 INDICATION FOR SURGERY: This is a 17-year-old with ruptured hemorrhagic cyst. POSTOPERATIVE DIAGNOSIS: Same. SURGEON: Ortega Puentes MD OPERATIONS PROCESSOR: Riccardo Pemberton MD ANESTHESIA: General. FINDINGS: Moderate amount of blood in the abdomen. The left ovarian cyst was ruptured. Both left and right ovaries appeared grossly normal. There were several implants of endometriosis seen in the pelvis. The bowel appeared grossly normal. COMPLICATIONS: None. DRAINS: None. PATHOLOGY: None. ESTIMATED BLOOD LOSS: 20 mL. About 500 mL of hemoperitoneum evacuated. DRAINS: Gee catheter is 50. DISPOSITION: Stable to recovery room. PROCEDURE PERFORMED: 1. Diagnostic laparoscopy. 2. Evacuation of hemoperitoneum. 3. Cauterization of hemorrhagic corpus luteum cyst. DESCRIPTION OF PROCEDURE: The patient was taken to the operating room where she was prepped and draped in normal sterile fashion in dorsal lithotomy position. Time-out was called. An infraumbilical incision is made with a scalpel and carried down to the fascia. Sharee was used to grab the fascia and Veress needle was introduced into the abdomen at a 45-degree angle while tenting up the fascia. Intra-abdominal placement was confirmed using a water-filled syringe. Abdomen was insufflated with 3 liters of CO2. The Veress needle was removed. A trocar was introduced in the abdomen at a 45-degree angle under direct visualization. Once inside the abdomen, the laparoscope and trocar were repositioned. Two accessory ports were placed on the left side of the abdomen under direct visualization. Using two 10-mm ports and one 5-mm port, the surgery was performed. Findings in the abdomen are as dictated above. An irrigating suction device was passed through the accessory port and 500 mL of blood was evacuated with clots out of the abdomen. The pelvic exam is as dictated above. Both ovaries appeared grossly normal. The left hemorrhagic corpus luteum cyst bleeding site was identified. Cautery was used to obtain hemostasis at the bleeding site. Once hemostasis was obtained, more irrigation was supplied. FloSeal was placed on the bleeding site for hemostasis. At this point, further inspection of the abdomen and the bleeding site showed good hemostasis. All instruments were removed from the abdomen and the two 10-mm ports were closed in 2 layers. The fascia was grabbed and closed with Vicryl suture. The skin incision for all 3 sites were closed with a 4-0 Monocryl. The patient was sent to recovery in stable condition. I attest to the content of the Intraoperative Record and any orders documented therein. Any exceptions are noted below. BHUPENDRAD
--- NOTE | 2018-02-05 02:22 | Discharge Summary ---
CHIEF COMPLAINT: 1. Abdominal pain. 2. Ruptured ovarian hemorrhagic cyst. HISTORY OF PRESENT ILLNESS: This is a 17-year-old who presented to the Emergency Room with abdominal pain. She underwent an ultrasound and CT scan which showed a left ruptured hemorrhagic cyst. The patient was observed in Emergency Room, her vitals were stable. She was brought up to LABORATORY CHIEF floor for observation. Her hematocrit dropped 2 points within a matter of several hours. Decision was therefore made to take patient to the Emergency Room and perform surgery. The patient underwent diagnostic laparoscopy, evacuation of hemoperitoneum and cauterization of hemorrhagic cyst. The patient did well in the operating room. Postop was unremarkable as well. She was then discharged home in the morning of 01/18/2018 in stable condition. PAST MEDICAL HISTORY: None. PAST SURGICAL HISTORY: None. SOCIAL HISTORY: The patient denies tobacco, drug or alcohol use. ALLERGIES: No known drug allergies. LABORATORY CHIEF HISTORY: Unremarkable. The patient had an IUD in place. REVIEW OF SYSTEMS: Negative except as dictated in the HPI. PHYSICAL EXAMINATION: GENERAL: Well-developed, well-nourished young female in no acute distress. VITAL SIGNS: At time of discharge showed temperature 37 degrees, pulse of 81, respirations 18, blood pressure was 105/47. HEART: S1, S2, regular rhythm and rate. LUNGS: Clear to auscultation bilaterally. ABDOMEN: Nontender, nondistended. Incision clean, dry and intact. EXTREMITIES: No cyanosis, clubbing or edema. LABORATORY DATA: Labs on 01/18 showed hemoglobin of 9.4, hematocrit of 26.4. Platelets of 149. CONDITION ON DISCHARGE: Stable. OPERATIONS: 1. Operative diagnostic and operative laparoscopy. 2. Evacuation of hemoperitoneum. 3. Cauterization of ovarian cyst. DISCHARGE DIAGNOSIS: Postop unremarkable, stable. PLAN ON DISCHARGE: The patient is discharged home with instructions regarding activity, diet, followup appointment and medications.
== END 2018-01-18 10:00 | disposition home or self-care (01) ==
LOC: ED 12:36 → 4N 12:36
DX: N83.202 Unspecified ovarian cyst, left side